=== PATIENT | female | born 1965 | race Caucasian/White ===

== ENCOUNTER 2018-05-15 20:23 | Emergency (ER) | payer BC ==
[~2018-05-15] VITALS: Ht 165.1 cm; Wt 73.0 kg
[~2018-05-15 20:23] MED LIST: ASPIRIN EC325 MG PO; DICYCLOMINE HCL20 MG PO; MIRALAX17 GM PO
[2018-05-15] MEDS ORDERED: ASPIRIN81 MG PO (20:36)
--- NOTE | 2018-05-16 16:52 | EKG ---
[facility] [address] [facility] [place], [place] [address] Signed Normal sinus rhythm Normal ECG No previous ECGs available Confirmed by EFRAIN RUSSO DO ([id number]) on 05/16/2018 4:51:56 PM Electronically Signed By: EFRAIN RUSSO DO 05/16/18 165 PATIENT NAME: RACHID CARRASCO Electrocardiogram DATE OF : 69 PHYSICIAN: EFRAIN RUSSO DO REPORT #: [id number] REPORT IS CONFIDENTIAL AND NOT TO BE RELEASED WITHOUT AUTHORIZATION
== END 2018-05-15 23:14 | disposition home or self-care (01) ==
LOC: ED 20:23
DX: R07.9 Chest pain, unspecified (principal); F17.200 Nicotine dependence, unspecified, uncomplicated; Z88.5 Allergy status to narcotic agent; Z88.8 Allergy status to other drugs, medicaments and biological substances; Z79.82 Long term (current) use of aspirin
CPT/HCPCS: 71045; 80053; 84484; 85025; 93005; 93010; 99285-25

== ENCOUNTER 2020-10-13 07:45 | Day surgery (SDC) | payer BC ==
[~2020-10-13] VITALS: Ht 165.1 cm; Wt 78.6 kg
[~2020-10-13 07:45] MED LIST changes: +ASPIRIN81 MG PO; +CYMBALTA20 MG PO
--- NOTE | 2020-10-13 09:47 | NUR ---
10/13/20 0947 Sheets,Sunita 0995 PT ARRIVED TO PACU ON 10L VIA MASK, RESP EVEN AND UNLABORED WITH ORAL AIRWAY IN PLACE. VSS.
--- NOTE | 2020-10-13 20:11 | OR ---
[facility] [address] [place], [place] [address] Signed DATE OF OPERATION: 10/13/2020 SURGEON: Isaias Pelaez MD PREOPERATIVE DIAGNOSES: 1. Colonic polyps in 2010 (age 45). 2. Melanosis coli (2011). 3. Colon polyp 2015 (age 50). 4. Long redundant colon. 5. Chronic constipation. POSTOPERATIVE DIAGNOSES: 1. Mild melanosis coli. 2. Minimal internal anal skin tags x3. 3. Long redundant colon. PROCEDURE: Colonoscopy with random cold biopsies x2 and sigmoid colon. ESTIMATED BLOOD LOSS: None. INDICATIONS: Rachid is a 55-year-old female, asked to see me for a followup colonoscopy. At age 45, she had a colonoscopy in 2010 and had an adenomatous polyp removed along with melanosis coli. She has a redundant left colon as well. She required 12 mg of Versed and 250 mcg of fentanyl for that procedure. She does not recall that procedure, but that is a significant amount of medication. In that regard. We used an anesthesia provider for Rachid currently. She does much better with propofol as indicated today. She had a followup colonoscopy in 2015 and again a tiny adenomatous polyp was removed. We did not specifically see melanosis coli on that occasion. Apparently, she does not prefer MiraLAX, so she uses colon cleanse for her chronic constipation. There is no family history of colon cancer or polyps. She returns for a followup colonoscopy. In the office, I gave her a pamphlet on colonoscopy and she recalls the test quite well. There is risk including, but not limited to gas, bloating, crampy abdominal pain, bleeding, perforation requiring surgery, and missed diagnosis. Again, I explained to her the need for the monitored anesthesia care given her complex medical history as well as her multiple allergies and her need for significant amounts of versed and fentanyl. She had expressed understanding and wished to proceed. Electronically Signed By: ISAIAS PELAEZ MD 10/13/202010 PATIENT NAME: RACHID CARRASCO OPERATIVE REPORT DATE OF : 69 REPORT #: [id number] PHYSICIAN: ISAIAS PELAEZ MD PCP: KEVIN QUEZADA REPORT IS CONFIDENTIAL AND NOT TO BE RELEASED WITHOUT AUTHORIZATION [facility] [address] [place] [id number] Signed PROCEDURE NOTE: Rcahid was taken into our endoscopy suite and placed in the left lateral decubitus position. She was given IV sedation with propofol per our nurse unclaimed property officer. A digital rectal exam was performed and this was unremarkable. The adult colonoscope was introduced and advanced under direct visualization of camera. She did require abdominal compression. We did move the scope through a long redundant left colon. Eventually, we were down into the cecum itself. Her prep was quite excellent. We could see the appendiceal orifice and the ileocecal valve. The scope was then slowly withdrawn. On this occasion, she had very mild faint-colored tiger striping consistent with melanosis coli. Otherwise, no findings in the entire colon or rectum. We took two random cold biopsies of the sigmoid colon for the melanosis coli. The scope had been retroflexed in the rectum and we could see she has three tiny internal anal skin tags. After this, the gas was suctioned out and the colonoscope removed. Rachid tolerated the procedure quite well. RECOMMENDATIONS: Rachid will follow up in my office in the next few weeks to review her results. Once again, we will encourage her to use a fiber product and MiraLAX rather than colon cleanse. Isaias Pelaez MD ALB/MODL /[id number] cc: [facility] Isaias Pelaez MD Copies: ISAIAS PELAEZ MD ~ Electronically Signed By: ISAIAS PELAEZ MD 10/13/202010 PATIENT NAME: RACHID CARRASCO OPERATIVE REPORT DATE OF : 69 REPORT #: [id number] PHYSICIAN: ISAIAS PELAEZ MD PCP: KEVIN QUEZADA REPORT IS CONFIDENTIAL AND NOT TO BE RELEASED WITHOUT AUTHORIZATION
--- NOTE | 2020-10-14 13:41 | PATH ---
[facility] [address] [place], [place] [address] Signed SPECIMEN(S): A COLON BIOPSY 20 CM SPECIMEN SOURCE: A. COLON BIOPSY 20 CM CLINICAL HISTORY: Colonoscopy. Personal history of colon polyps, chronic constipation, melanosis coli. Postop Dx: Melanosis coli, internal external skin tags. MICROSCOPIC DESCRIPTION: Histologic sections of all submitted blocks are examined by light microscopy. These findings, together with the gross examination, support the pathologic diagnosis. FINAL PATHOLOGIC DIAGNOSIS: Colon, 20 cm, biopsy: - Fragments of colonic mucosa with mild melanosis coli. - Negative for active, chronic, or microscopic colitis. - Negative for dysplasia or malignancy. NAL:cml:C2NR GROSS DESCRIPTION: The specimen, labeled "WT, 1," and designated on the requisition "20 cm colon biopsy, melanosis colon," is received in formalin and consists of two fragments of pink-diaz tissue (both 0.3 cm in greatest dimension). The specimen is submitted entirely in cassette (A1). AC (under the direct supervision of a pathologist The Gross Description was prepared using a voice recognition system. The report was reviewed for accuracy; however, sound-alike word errors, addition and/or deletions may occur. If there is any question about this report, please contact Client Services. PERFORMING LABORATORY: The technical component was performed by [facility], [address] [place] [id number] (Audio Operator: Claudia Beltran MD; CLIA# [id number]). Professional interpretation was performed by [facility], [address] [address] (CLIA# [id number]). Diagnostician: Rosemary Dickerson MD Pathologist Electronically Signed 10/14/2020 PATIENT NAME: RACHID CARRASCO PATHOLOGY DATE OF : 69 REPORT #: [id number] PHYSICIAN: [facility] PCP: KEVIN QUEZADA REPORT IS CONFIDENTIAL AND NOT TO BE RELEASED WITHOUT AUTHORIZATION [address] [address] Signed Copies: ~ PATIENT NAME: RACHID CARRASCO PATHOLOGY DATE OF : 69 REPORT #: [id number] PHYSICIAN: [facility] PCP: KEVIN QUEZADA REPORT IS CONFIDENTIAL AND NOT TO BE RELEASED WITHOUT AUTHORIZATION
== END 2020-10-13 10:17 | disposition home or self-care (01) ==
LOC: OPS 07:45 → DS 07:45 → OPS 09:30 → DS 11-03 07:30
PROVIDERS: ATTEND Colon & Rectal Surgery
PROC: 0DBN8ZX Excision of Sigmoid Colon, Via Natural or Artificial Opening Endoscopic, Diagnostic (ICD-10-PCS; principal; 2020-10-13 09:30)
DX: K63.89 Other specified diseases of intestine (principal); K64.4 Residual hemorrhoidal skin tags; Q43.8 Other specified congenital malformations of intestine; K59.09 Other constipation; Z86.010 Personal history of colon polyps; F17.210 Nicotine dependence, cigarettes, uncomplicated; Z88.5 Allergy status to narcotic agent; Z88.8 Allergy status to other drugs, medicaments and biological substances
CPT/HCPCS: J2704; J7121

== ENCOUNTER 2024-12-27 16:29 | Emergency (ER) | payer OTHER, BC ==
[~2024-12-27] VITALS: Ht 165.1 cm; Wt 65.6 kg
[2024-12-27] MEDS ORDERED: ZEPBOUND2.5 MG/0.5 SUB-Q (16:45)
[2024-12-27 19:07] VITALS: BP 000/00
== END 2024-12-27 19:08 | disposition home or self-care (01) ==
LOC: ED 16:29
DX: T23.262A Burn of second degree of back of left hand, initial encounter (principal); F17.200 Nicotine dependence, unspecified, uncomplicated; Z88.5 Allergy status to narcotic agent; Z88.6 Allergy status to analgesic agent; Z88.4 Allergy status to anesthetic agent; Z88.8 Allergy status to other drugs, medicaments and biological substances; Z79.85 Long-term (current) use of injectable non-insulin antidiabetic drugs; X10.0XXA Contact with hot drinks, initial encounter
CPT/HCPCS: 99283